=== PATIENT | female | born 1955 | race Caucasian/White ===

== ENCOUNTER 2019-04-15 06:05 | Day surgery (SDC) | payer MEDICARE, SELFPAY ==
[2019-04-15] VITALS (7 sets, daily range): BP systolic 116–139; BP diastolic 73–82; PULSE 70–82; RESP 16–18; TEMP 36.1–36.8; O2SAT 92–96; BMI 41.3
--- NOTE | 2019-04-15 08:00 | BLA_PTH ---
PATIENT: GERARDO SORENSON LOC: [facility] [place] U#:[id number] AGE/SX: 64/F ROOM: RE04/15/[address]: Dr. Mel Ching MD : [id number] BED: DIS: 04/15/2019 SPEC #: [id number] RECD: 04/15/19 13:48 STATUS: LINSEY REHerb #: [id number] MEGAN: 04/15/19 08:[address]: Mel Ching DEPT: SURGICAL PATHOLOGY RECD BY: Wilma Pritchett ENTERED: 04/15/19 14:54 SP TYPE: BLADDER BX OTHR DR: Out of Town Doctor Tissues: Urinary bladder, NOS Procedures: Surgery Specimen Level IV HEADER OPERATION: Cystoscopy, pelvic exam, bladder biopsy PRE-OP DIAGNOSIS: Gross hematuria, urethral stricture TISSUE SUBMITTED: Bladder biopsy MICROSCOPIC DIAGNOSIS Urinary bladder, biopsy: Chronic cystitis. See comment. CE:estrella 04/16/19 COMMENT Sections show partially denuded urothelial mucosa with marked chronic inflammation and reactive urothelial changes. No atypia is found. MICROSCOPIC DESCRIPTION Slides are reviewed. GROSS DESCRIPTION Received is one container labeled with the patient's name and not further designated. The specimen consists of one irregular fragment of light huynh soft tissue that measures 0.2 x 0.1 x 0.1 cm. The specimen is totally submitted in one cassette. / SJ:estrella 04/15/19 TC:3 CPT: 90143
--- NOTE | 2019-04-15 08:09 | PCM.OPRPT ---
Problem List (1) Gross hematuria Status: Acute Report of Operation Date of Procedure: 04/15/19 Pre-Operative Diagnosis: gross hematuria, urethral stricture Post-Operative Diagnosis: same and bladder mucosal lesion unknown malignant potential Surgery/Procedure Performed:: pelvic exam under anesthesia, urethral dilation, cystoscopy and bladder biopsy. Description of Surgical Findings:: bleeding likely from urethra, she started bleeding with minimal manipulation, but not consistent with malignancy of urethra. Bladder mucosal lesion consistent with cystitis clinically, area fulgurated for hemostatic control. Type of Anesthesia:: MAC Specimen's removed: bladder biopsy Estimated Blood Loss (mL): 5cc Description of Procedure: The patient is a 64-year-old female who presented to the office with blood on her pad. There is never blood in the toilet but I worked her up for gross hematuria. The CT scan was normal. She would not tolerate a cystoscopy in the office. Informed consent was obtained to perform a pelvic exam under anesthesia along with cystoscopy. The patient was taken to the operating room and placed on the operating room table. Anesthesia monitored the head, neck, airway, IV access and vital signs throughout the case. Once anesthesia was appropriately administered the patient was placed into dorsal lithotomy position was prepped and draped in usual sterile fashion. On pelvic examination there is significant uterine prolapse with the cervix present at the introitus. There are no breaks in the mucosa. There is mild atrophy. At this time an attempt was made to pass the cystoscope into the urethra. The patient was obviously uncomfortable with this attempt and bleeding started from the urethra. There is no urethral mucosal abnormality. At this time using urethral sounds, the urethra was dilated from 14 Armenian to 30 Armenian and with the dilations the patient's discomfort was alleviated. Upon entrance into the urinary bladder a small area approximately 3 to 4 mm in size on the left lateral wall was identified. This area was consistent with cystitis, and a biopsy was taken for further evaluation. Hemostasis was obtained with Bugbee cautery. The patient's bladder was emptied and she was awakened and taken to the recovery room in good condition. There were no complications during this procedure. Grafts/Implants Used: none - Complications none - Admit VTE Documentation VTE Present on Admission: Yes VTE Mechan Device Prophylaxis: SCD's VTE Pharm Prophylaxis ordered?: No Reason prophylaxis not ordered:: Treatment Not Indicated
--- NOTE | 2019-04-15 08:10 | DCINST_ITS ---
Discharge Diet: No Restrictions Discharge Activity: Return to Normal Activity, May not drive while taking narcotic pain medications. May resume sexual activity in: 1 week Call your doctor if you observe: Fever of 101 or Higher, Inability to urinate, Inability to have a bowel movement, Shortness of breath, Chest pain, Calf discomfort, Uncontrolled pain Allergies/Adverse Reactions: Allergies moxifloxacin [From Avelox] Allergy (Verified 04/15/19 06:24) Swelling triamcinolone [From Kenalog] Allergy (Verified 04/15/19 06:24) Hives Medications to take at Discharge Ergocalciferol [Vitamin D] 50,000 unit PO Q7D 04/08/19 Metoprolol Tartrate [Lopressor (Beta Tana)] 100 mg PO BID 04/08/19 Primary Care Physician: Vincent Gonzalez,Out of [Primary Care Provider] - Test Results: Test results from this visit will be discussed in further detail at your follow- up appointment, if applicable. Please Follow Up With: Mel Ching MD When: call for appt in 1-2 weeks Proposed Discharge Date: 04/15/19
[2019-04-15] MEDS: Cefazolin 2 GM in 0.9% Normal Saline 100 ML IV (08:12)
[2019-04-15] MEDS: Lidocaine Jelly 2% 20 ML Syringe (URO-JET) 20 APPLIC (08:22)
== END 2019-04-15 09:46 | disposition home or self-care (01) ==
LOC: SDC 06:08 → AC 06:12
PROVIDERS: Referring Provider Urology; Visit Provider Urology
PROC: 0TJB8ZZ Inspection of Bladder, Via Natural or Artificial Opening Endoscopic (ICD-10-PCS; CPT 52000; principal; 2019-04-15 07:45)
DX: N30.11 Interstitial cystitis (chronic) with hematuria (principal); N32.9 Bladder disorder, unspecified; N35.92 Unspecified urethral stricture, female; R31.0 Gross hematuria; N81.4 Uterovaginal prolapse, unspecified; R39.12 Poor urinary stream; I49.3 Ventricular premature depolarization; I49.1 Atrial premature depolarization; E78.00 Pure hypercholesterolemia, unspecified; K58.9 Irritable bowel syndrome, unspecified; E04.1 Nontoxic single thyroid nodule; Z78.0 Asymptomatic menopausal state; Z79.899 Other long term (current) drug therapy; Z87.442 Personal history of urinary calculi
CPT/HCPCS: 00910; 52204; 52344; 88305; J7120